=== PATIENT | female | born 1965 | race Caucasian/White ===

== ENCOUNTER 2018-06-28 13:27 | Emergency (ER) | payer BC ==
[2018-06-28] MEDS ORDERED: Ondansetron ODT TAB* 4 MG SL ONE (14:10)
--- NOTE | 2018-06-28 14:17 | UC ---
General HPI - HPI Summary HPI Summary: Here from [place] for an executive leadership conference at [employer]. Has a hx of constipation. Her last BM was 06/23. She had skipped dinner the past two nights because she wasn't feeling well. Last night she woke up nauseated and vomited once. Remains slightly nauseated. Has a lap band so its hard for her to vomit. She has been passing only small hard stools and some gas. Mild abdominal discomfort. Chills last night. No fever. No further vomiting. Meds reviewed. Has not tried taking anything for her constipation. Normally takes a special tea. Is flying back tomorrow morning. - History of Current Complaint Chief Complaint: UCAbdominalPain Stated Complaint: VOMITING CONSTIPATION Time Seen by Provider: 06/28/18 14:01 Pain Intensity: 7 - Allergy/Home Medications Allergies/Adverse Reactions: Allergies Allergy/AdvReac Type Severity Reaction Status Date / Time No Known Allergies Allergy Verified 06/28/18 13:49 Home Medications: Home Medications Vortioxetine Hydrobromide [Brintellix] 10 mg PO DAILY WITH MEAL 06/28/18 [ History Confirmed 06/28/18] clonazePAM [Clonazepam] 0.5 mg PO DAILY WITH MEAL 06/28/18 [History Confirmed ] PMH/Surg Hx/FS Hx/Imm Hx Previously Healthy: Yes - Surgical History Surgical History: Yes Surgery Procedure, Year, and Place: hysterectomy. gall bladder. foot surgey bilateral - Social History Alcohol Use: Weekly Substance Use Type: Marijuana Smoking Status (MU): Never Smoked Tobacco Review of Systems All Other Systems Reviewed And Are Negative: Yes Gastrointestinal: Positive: Abdominal Pain, Vomiting Physical Exam Triage Information Reviewed: Yes Appearance: Well-Appearing Vital Signs: Initial Vital Signs Temp 98 F 06/28/18 13:42 Pulse 51 06/28/18 13:42 Resp 18 06/28/18 13:42 BP 102/61 06/28/18 13:42 Pulse Ox 99 06/28/18 13:42 Eye Exam: Normal Eyes: Positive: Conjunctiva Clear Neck: Positive: Supple, Nontender Respiratory: Positive: Lungs clear, Normal breath sounds Cardiovascular: Positive: RRR, No Murmur Abdomen Description: Positive: Other: - hypoactive bowel sounds, soft, nondistended, port palpated in LLQ, mild diffuse tenderness. No rebound or guarding. Diagnostics - Radiology abdominal xray Radiology Interpretation Completed By: Radiologist Course/Dx - Course Course Of Treatment: This is a 52 yr old with a PMHx of constipation and lap band who presents with constipation and nausea Assessment ZOfran 4 mg SL given Nausea likely from her constipation Abd film: No obstruction Large stool burden Plan Start with enema if no relief with enema recommend starting magnesium citrate ( OTC) - drink bottle until you start stooling REcommend colace (stool softener) 100 mg 2x/day - Diagnoses Provider Diagnosis: Constipation Discharge - Sign-Out/Discharge Documenting (check all that apply): Patient Departure All imaging exams completed and their final reports reviewed: Yes - Discharge Plan Condition: Good Disposition: HOME Prescriptions: Sodium Phosphate ADULT ENEMA* [Fleet Enema*] 1 bottle .SEE ORDER ONCE #1 btl Patient Education Materials: Constipation (ED) Referrals: No Primary Care Phys,NOPCP [Primary Care Provider] - Additional Instructions: Start with enema if no relief with enema recommend starting magnesium citrate ( OTC) - drink bottle until you start stooling REcommend colace (stool softener) 100 mg 2x/day Continue to drink plenty of fluids and high fiber diet If abdominal pain, unable to keep down fluids and unable to have a bowel movement or pass gas, return to the ER - Billing Disposition and Condition Condition: GOOD Disposition: Home
== END 2018-06-28 14:45 | disposition home or self-care (01) ==
LOC: UCEAST 13:27
DX: K59.00 Constipation, unspecified (principal); F12.90 Cannabis use, unspecified, uncomplicated; Z98.84 Bariatric surgery status
CPT/HCPCS: 74018; 99202; A9270-GY; G0463